=== PATIENT | male | born 1965 ===

== ENCOUNTER → 2021-01-07 | Outpatient (CLI) | payer OTHER ==
[~2021-01-07] VITALS: Ht 180.3 cm; Wt 97.5 kg
[~2021-01-07] MED LIST: ADULT ASPIRIN R81 MG PO; ATORVASTATIN CA80 MG PO; CYMBALTA60 MG PO; ENTRESTO 24 MG1 EACH PO; GLUCOPHAGE1000 MG PO; OXYCODONE-ACET1 EACH PO; PLAVIX 75 MG TA75 MG; RANEXA1000 MG PO; SPIRONOLACTONE25 M1 PO; TOPROL XL25 MG PO; ZETIA10 MG
[2021-01-07 13:46] VITALS: BP 126/81
--- NOTE | 2021-01-07 13:58 | NUR ---
[facility] Assessment: 1. History of Osteoarthritis: History of Rheumatoid Arthritis: 2. Height: 5 ft. 11 in. 180.3 cm. Weight: 215.0 lb. oz. 97.524 kg. Patient's BMI: 30.0 3. Vital Signs: BP: 126/81 Pulse: 80 Resp: 16 Temp: 02 Sat: 98 ECG Mon: 4. Pain Intensity: 8 5. Fall Risk: Dizziness: N Needs help standing or walking: Y Fallen in the last 3 months: Y Fall risk comments: 6. Patient on Blood Thinner: PLAVIX 7. History of Hypertension: Y 8. Opioid Therapy greater than 6 weeks: Opiate Contract Signed: 9. Risk Assessment Tool Provided: l LOW RISK 10. Functional Assessment Tool: 70/70 11. Recreational Drug Use: Never Drug Type: Tobacco Use: Current Every Day Smoker Tobacco Type: Cigarettes Amount or Packs/day: 1/4 PACK How Many Years: 40 Alcohol Use: Yes Frequency: Monthly Quant: 2-3
== END ==
LOC: PAIN 06:58
PROVIDERS: ATTEND Anesthesiology Pain Medicine
DX: M96.1 Postlaminectomy syndrome, not elsewhere classified (principal); I10 Essential (primary) hypertension; E11.9 Type 2 diabetes mellitus without complications; I25.10 Atherosclerotic heart disease of native coronary artery without angina pectoris; F32.9 Major depressive disorder, single episode, unspecified; Z79.891 Long term (current) use of opiate analgesic; Z79.899 Other long term (current) drug therapy